=== PATIENT | male | born 1960 | race Caucasian/White ===

== ENCOUNTER 2016-11-10 08:44 | Day surgery (SDC) | payer BC ==
[~2016-11-10 08:44] MED LIST: Acetaminophen TAB* 325 MG PO PRN; Buffered Lidocaine 0.9% SYRIN* 5 ML/SYR SYRINGE INTRADERM ONE
[2016-11-10] MEDS ORDERED: Midazolam* 1 MG/ML 5 ML VIAL (5 MG) ONE (09:03)
[2016-11-10] MEDS ORDERED: fentaNYL* 50 MCG/ML 2 ML VIAL (100 MCG VIAL) ONE (09:03)
[2016-11-10 09:56] VITALS: BP 95/71
--- NOTE | 2016-11-10 13:21 | OP ---
DATE OF OPERATION: 11/10/16 [facility] DATE OF : 64 SURGEON: Dr. Davy Hurd. VOCATIONAL NURSING INSTRUCTOR: None. ANESTHESIOLOGIST: Praveen Bahena MD ANESTHESIA: Topical with intravenous sedation. PRE-OP DIAGNOSIS: Cataract, right eye. POST-OP DIAGNOSIS: Cataract, right eye. OPERATIVE PROCEDURE: Phacoemulsification and cataract extraction with posterior chamber intraocular lens implant, right eye. COMPLICATIONS: None. BLOOD LOSS: None. DESCRIPTION OF PROCEDURE: The patient was brought to the operating room and received a small amount of intravenous sedation. A drop of Tetracaine was placed in his right eye. He was prepped and draped in the usual sterile fashion for ophthalmic surgery and attention was directed to the right eye where a speculum was placed. A paracentesis was created at the 11 o'clock position and 0.1 cc of 1 percent preservative-free Lidocaine was injected into the anterior chamber followed by DisCoVisc. The eye was digitally stabilized while a 2.75 mm keratome was used to create a triplanar clear corneal incision at the 9 o'clock position. A continuous curvilinear capsulorrhexis was created with a cystotome and Utrata forceps. BSS on a cannula was used to hydrodissect the lens from the capsule. Phacoemulsification was performed in a divide-and- conquer technique to create four fragments which were removed. Residual cortical material was removed with irrigation and aspiration. DisCoVisc was used to inflate the capsular bag and an AUOOTO 19.5 diopter lens was folded and inserted into the capsular bag. DisCoVisc was removed using irrigation and aspiration. BSS on a cannula was used to hydrate the corneal stroma and seal the wound. At the end of the case the pupil was round and the lens was centered. The eye was of normal pressure and the wound was water tight. The speculum was removed and topical Maxitrol ointment was placed on the surface of the eye. The eye was closed, patched and shielded and the patient was sent to the recovery room in stable condition with post operative instructions and follow-up appointment given. [id number] #: [id number] MTDD
[2016-11-10] MEDS ORDERED: Cyclopentolate 1% OPTH.SOL* 2 ML BTL ONE (13:46)
[2016-11-10] MEDS ORDERED: Neomycin/Polymy/Dex OPHTH.OIN* 3.5 GM ONE (13:47)
[2016-11-10] MEDS ORDERED: Ketorolac 0.5% OPHTH (NF) 0.5 % 5 ML BTL ONE (13:47)
[2016-11-10] MEDS ORDERED: Tropicamide 1% OPTH.SOL* BTL ONE (13:47)
[2016-11-10] MEDS ORDERED: Phenylephrine 2.5% OPTH.SOL* 2 ML BTL ONE (13:47)
[2016-11-10] MEDS ORDERED: Lidocaine 1% MPF* 2 ML VIAL ONE (13:47)
[2016-11-10] MEDS ORDERED: Tetracaine 0.5% OPTH.SOL 4 ML* 1 DROP BTL ONE (13:47)
[2016-11-10] MEDS ORDERED: Buffered Lidocaine 0.9% SYRIN* 5 ML/SYR SYRINGE ONE (13:47)
== END 2016-11-10 10:20 | disposition home or self-care (01) ==
LOC: OREAST 08:44
PROVIDERS: ATTEND Ophthalmology
DX: H25.11 Age-related nuclear cataract, right eye (principal); H25.041 Posterior subcapsular polar age-related cataract, right eye; M06.9 Rheumatoid arthritis, unspecified; M79.7 Fibromyalgia; M19.90 Unspecified osteoarthritis, unspecified site; N52.9 Male erectile dysfunction, unspecified; J30.9 Allergic rhinitis, unspecified; F32.9 Major depressive disorder, single episode, unspecified; Z87.891 Personal history of nicotine dependence
CPT/HCPCS: A9270-GY; J2250; J3010; V2632

== ENCOUNTER 2017-03-02 12:16 | Day surgery (SDC) | payer BC ==
[2017-03-02] MEDS ORDERED: fentaNYL* 50 MCG/ML 2 ML VIAL (100 MCG VIAL) ONE (13:34)
[2017-03-02] MEDS ORDERED: Midazolam* 1 MG/ML 2 ML VIAL (2 MG) ONE ×2 (13:34→13:49)
[2017-03-02 14:30] VITALS: BP 109/71
--- NOTE | 2017-03-02 14:38 | OP ---
DATE OF OPERATION/DATE OF DICTATION: 03/02/2017 - [facility] DATE OF : 1960. SURGEON: Dr. Davy Hurd. HOME INSURANCE AGENT: None. ANESTHESIA: Topical with intravenous sedation. PRE-OP DIAGNOSIS: Cataract, left eye. POST-OP DIAGNOSIS: Cataract, left eye. OPERATIVE PROCEDURE: Phacoemulsification and cataract extraction with posterior chamber intraocular lens implant, left eye. COMPLICATIONS: None. BLOOD LOSS: None. DESCRIPTION OF PROCEDURE: The patient was brought to the operating room and received a small amount of intravenous sedation. A drop of Tetracaine was placed in his left eye. He was prepped and draped in the usual sterile fashion for ophthalmic surgery and attention was directed to the left eye where a speculum was placed. A paracentesis was created at the 5 o'clock position and 0.1 cc of 1 percent preservative-free Lidocaine was injected into the anterior chamber followed by DisCoVisc. The eye was digitally stabilized while a 2.75 mm keratome was used to create a triplanar clear corneal incision at the 3 o'clock position. A continuous curvilinear capsulorrhexis was created with a cystotome and Utrata forceps. BSS on a cannula was used to hydrodissect the lens from the capsule. Phacoemulsification was performed in a [id number] technique to create four fragments which were removed. Residual cortical material was removed with irrigation and aspiration. DisCoVisc was used to inflate the capsular bag and an AUOOTO 19.5 diopter lens was folded and inserted into the capsular bag. DisCoVisc was removed using irrigation and aspiration. BSS on a cannula was used to hydrate the corneal stroma and seal the wound. At the end of the case the pupil was round and the lens was centered. The eye was of normal pressure and the wound was water tight. The speculum was removed and topical Maxitrol ointment was placed on the surface of the eye. The eye was closed, patched and shielded and the patient was sent to the recovery room in stable condition with post operative instructions and follow-up appointment given. [id number]/CPS #: [id number] MTDD
[2017-03-02] MEDS ORDERED: Ketorolac 0.5% OPHTH (NF) 0.5 % 5 ML BTL ONE (15:28)
[2017-03-02] MEDS ORDERED: Neomycin/Polymy/Dex OPHTH.OIN* 3.5 GM ONE (15:28)
[2017-03-02] MEDS ORDERED: Phenylephrine 2.5% OPTH.SOL* 2 ML BTL ONE (15:28)
[2017-03-02] MEDS ORDERED: Cyclopentolate 1% OPTH.SOL* 2 ML BTL ONE (15:28)
[2017-03-02] MEDS ORDERED: Lidocaine 1% MPF* 2 ML VIAL ONE (15:28)
[2017-03-02] MEDS ORDERED: Tropicamide 1% OPTH.SOL* BTL ONE (15:28)
[2017-03-02] MEDS ORDERED: Tetracaine 0.5% OPTH.SOL 4 ML* 1 DROP BTL ONE (15:28)
== END 2017-03-02 14:24 | disposition home or self-care (01) ==
LOC: OREAST 12:16
PROVIDERS: ATTEND Ophthalmology
DX: H25.12 Age-related nuclear cataract, left eye (principal); M19.90 Unspecified osteoarthritis, unspecified site; M06.9 Rheumatoid arthritis, unspecified; M79.7 Fibromyalgia; Z79.899 Other long term (current) drug therapy
CPT/HCPCS: A9270-GY; J2250; J3010; V2632

== ENCOUNTER 2017-03-09 19:34 | Emergency (ER) | payer BC ==
[2017-03-09 20:37] LABS: Hematocrit 37 % (42-52); Hemoglobin 12.1 g/dl (14.0-18.0); Mean Corpuscular HGB Conc 32 g/dl (31-36); Mean Corpuscular Hemoglobin 26 pg (27-31); Mean Corpuscular Volume 81 fL (80-94); Mean Platelet Volume 8 um3 (7.4-10.4); Red Cell Distribution Width 15 % (10.5-15); White Blood Count 11.3 10^3/ul (3.5-10.8)
[2017-03-09 20:39] LABS: Albumin 3.4 g/dL (3.2-5.2); BUN/Creatinine Ratio 13.8 (8-20); Calcium 9.3 mg/dL (8.6-10.3); EGFR African American 129.6 (>60); EGFR Non-African American 100.7 (>60); Globulin 4.2 g/dL (2-4); Potassium 4.2 mmol/L (3.5-5.0); Total Bilirubin 0.3 mg/dL (0.2-1.0); Total Protein 7.6 g/dL (6.4-8.9)
[2017-03-09] MEDS ORDERED: Ketorolac INJ* 60 MG/2 ML VIAL IM ONE (20:49)
--- NOTE | 2017-03-09 20:55 | RAD ---
INDICATION: Right leg swelling. COMPARISON: There are no prior studies available for comparison. TECHNIQUE: Multiple real-time, color flow and Doppler tracings of the right lower extremity were obtained. FINDINGS: The common femoral, femoral, profunda femoral and popliteal veins all demonstrate normal compressibility, augmentation with compression and phasic response with respiration. The posterior tibial and peroneal veins demonstrate normal compressibility and augmentation with compression. IMPRESSION: NO EVIDENCE FOR DEEP VENOUS THROMBOSIS.
[2017-03-09] MEDS ORDERED: predniSONE TAB* 20 MG PO ONE (21:21)
--- NOTE | 2017-03-09 21:21 | ED ---
Lower Extremity - HPI Summary HPI Summary: 56M presents with right leg swelling for 3 days. He states that swelling is greatest in right knee. He denies any history of blood clots. He did travel for 3 hours a couple days ago. He had cataract surgery a week ago. He has history of fibromyalgia and RA and ankylosing spondylitis. He states that he has been off his meds for the surgery. He states pain is 8/10. It is sharp it starts in right hip and radiates down entire leg. no fever. no rash. is not a current smoker. no injury. has aunt with blood clots. no chest pain or SOB. - History of Current Complaint Chief Complaint: EDExtremityLower Stated Complaint: RT LOWER EXTREMITY SWELLING Time Seen by Provider: 03/09/17 19:50 Pain Intensity: 10 - Allergies/Home Medications Allergies/Adverse Reactions: Allergies Allergy/AdvReac Type Severity Reaction Status Date / Time kiwi Allergy Severe slight Uncoded 03/02/17 13:09 anaphylactic myleogram dye Allergy Severe "severe Uncoded 03/02/17 13:09 headache" PMH/Surg Hx/FS Hx/Imm Hx Endocrine/Hematology History: Denies: Hx Anticoagulant Therapy GI History: Denies: Hx Gastroesophageal Reflux Disease History: Reports: Other Problems/Disorders - PROSTITIS- 1 MONTH AGO TREATED WITH ANTIBIOTICS Musculoskeletal History: Reports: Hx Arthritis - RHEUMATOID, Hx Rheumatoid Arthritis, Hx Tendonitis - HX OF IN ELBOWS, Other Musculoskeletal History - FIBROMYALGIA Sensory History: Reports: Hx Cataracts - BILATERAL, Hx Contacts or Glasses - GLASSES Denies: Hx Hearing Aid Opthamlomology History: Reports: Hx Cataracts - BILATERAL, Hx Contacts or Glasses - GLASSES Neurological History: Reports: Hx Headaches, Hx Migraine - STATES ATYPICAL- EVERY OTHER YEAR - Surgical History Surgery Procedure, Year, and Place: APPENDECTOMY-10 YEARS AGO. TONSILLECTOMY- 14 YEARS AGO. BONE GRAFT AND PINNING LEFT GREAT TOE-7 YEARS AGO. RECONSTRUCTIVE LEFT SIDE OF FACE- 40 YEARS AGO. right cataract surgery with IOL 2017 Hx Anesthesia Reactions: No Infectious Disease History: No Infectious Disease History: Denies: Traveled Outside the [place] in Last 30 Days - Family History Known Family History: Negative: Blood Disorder - Social History Alcohol Use: Occasionally Substance Use Type: Reports: Marijuana Substance Use Comment - Amount & Last Used: daily Smoking Status (MU): Former Smoker Amount Used/How Often: 1 PPD X 40 YEARS Review of Systems Negative: Fever Negative: Chest Pain Negative: Shortness Of Breath Positive: Edema - right leg All Other Systems Reviewed And Are Negative: Yes Physical Exam Triage Information Reviewed: Yes Vital Signs On Initial Exam: Initial Vitals Temp Pulse Resp BP Pulse Ox 98.6 F 95 18 134/79 99 03/09/17 19:38 03/09/17 19:38 03/09/17 19:38 03/09/17 19:38 03/09/17 19:38 Vital Signs Reviewed: Yes Appearance: Positive: Well-Appearing Skin: Positive: Warm, Dry Head/Face: Positive: Normal Head/Face Inspection Eyes: Positive: Normal, Conjunctiva Clear Respiratory/Lung Sounds: Positive: Clear to Auscultation, Breath Sounds Present Cardiovascular: Positive: Normal, RRR Musculoskeletal: Positive: Strength/ROM Intact - right leg, Kelsie Sign Right, Edema Right - knee and ankle right, Other - good pulses, capillary refill<2secs , neg ballotment Neurological: Positive: Normal Psychiatric: Positive: Normal - [place] Coma Scale Coma Scale Total: 15 Diagnostics - Vital Signs Vital Signs Temp Pulse Resp BP Pulse Ox 03/09/17 19:38 98.6 F 95 18 134/79 99 - Laboratory Lab Results: Lab Results 03/09/17 03/09/17 03/09/17 Range/Units 20:17 20:17 20:17 WBC 11.3 H (3.5-10.8) 10^3/ul RBC 4.60 (4.0-5.4) 10^6/ul Hgb 12.1 L (14.0-18.0) g/dl Hct 37 L (42-52) % MCV 81 (80-94) fL MCH 26 L (27-31) pg MCHC 32 (31-36) g/dl RDW 15 (10.5-15) % Plt Count 472 H (150-450) 10^3/ul MPV 8 (7.4-10.4) um3 Neut % (Auto) 65.3 (38-83) % Lymph % (Auto) 22.3 L (25-47) % [place] % (Auto) 9.7 H (1-9) % Eos % (Auto) 1.7 (0-6) % Baso % (Auto) 1.0 (0-2) % Absolute Neuts (auto) 7.4 (1.5-7.7) 10^3/ul Absolute Lymphs (auto) 2.5 (1.0-4.8) 10^3/ul Absolute Monos (auto) 1.1 H (0-0.8) 10^3/ul Absolute Eos (auto) 0.2 (0-0.6) 10^3/ul Absolute Basos (auto) 0.1 (0-0.2) 10^3/ul Absolute Nucleated RBC 0.01 10^3/ul Nucleated RBC % 0.1 INR (Anticoag Therapy) 1.12 H (0.77-1.02) APTT 35.6 (26.0-36.3) seconds Sodium 138 (133-145) mmol/L Potassium 4.2 (3.5-5.0) mmol/L Chloride 101 (101-111) mmol/L Carbon Dioxide 31 (22-32) mmol/L Anion Gap 6 (2-11) mmol/L BUN 11 (6-24) mg/dL Creatinine 0.80 (0.67-1.17) mg/dL Est GFR ( Amer) 129.6 (>60) Est GFR (Non-Af Amer) 100.7 (>60) BUN/Creatinine Ratio 13.8 (8-20) Glucose 83 (70-100) mg/dL Calcium 9.3 (8.6-10.3) mg/dL Total Bilirubin 0.30 (0.2-1.0) mg/dL AST 15 (13-39) U/L ALT 14 (7-52) U/L Alkaline Phosphatase 53 (34-104) U/L Total Protein 7.6 (6.4-8.9) g/dL Albumin 3.4 (3.2-5.2) g/dL Globulin 4.2 H (2-4) g/dL Albumin/Globulin Ratio 0.8 L (1-3) Result Diagrams: 03/09/17 20:17 03/09/17 20:17 Lab Statement: Any lab studies that have been ordered have been reviewed, and results considered in the medical decision making process. - Ultrasound No standard instances Ultrasound Interpretation: No Acute Changes Ultrasound Interpretation Completed By: Radiologist Lower Extremity Course/Dx - Course Course Of Treatment: 56M presents with right leg swelling for 3 days. He states that swelling is greatest in right knee. He denies any history of blood clots. He did travel for 3 hours a couple days ago. He had cataract surgery a week ago. He has history of fibromyalgia and RA and ankylosing spondylitis. He states that he has been off his meds for the surgery. He states pain is 8/ 10. It is sharp it starts in right hip and radiates down entire leg. no fever. no rash. is not a current smoker. no injury. on exam has edema over right knee and ankle. neg ballotment. u/s normal. labs normal electrolytes. discussed that do not have reason why leg is swollen but is not blood clot. will treat with steriod to reduce inflammation. patient understand and agrees with plan. - Diagnoses Differential Diagnosis/HQI/PQRI: Positive: DVT, Infection, Sprain Provider Diagnoses: Edema of right lower extremity Discharge - Discharge Plan Condition: Good Disposition: HOME Prescriptions: Methylprednisolone [Medrol Dosepak 4 MG*] 4 mg PO .SEE SANDRA INSTRUCTION #1 packet Patient Education Materials: Leg Edema (ED) Referrals: Zoraida Reyes DO [Primary Care Provider] - Additional Instructions: Follow directions on package for Medrol pack Use ibuprofen or Tylenol for pain every 6 hours ice area Follow up with primary within 5 days Return to ED if develop any new or worsening symptoms
[2017-03-09] MEDS ORDERED: Acetaminophen TAB* 325 MG PO ONE (21:37)
[2017-03-09] MEDS ORDERED: Acetaminophen TAB* 325 MG ONE (21:40)
[2017-03-09 21:58] VITALS: BP 131/77
== END 2017-03-09 21:57 | disposition home or self-care (01) ==
LOC: ED 19:34
DX: R60.0 Localized edema (principal); Z87.891 Personal history of nicotine dependence
CPT/HCPCS: 36415; 80053; 85025; 85610; 85730; 99282; A9270-GY; J1885; J7512

== ENCOUNTER → 2018-10-14 11:09 | Day surgery (SDC) | payer BC ==
[~2018-10-14 11:09] MED LIST changes: -Acetaminophen TAB* 325 MG PO PRN; -Buffered Lidocaine 0.9% SYRIN* 5 ML/SYR SYRINGE INTRADERM ONE; +Buffered Lidocaine 1% SYRIN* 1 ML/SYRINGE INTRADERM ONE; +Dexamethasone IV* 4 MG/ML 1 ML (4 MG) IV SLOW PU ONE; +Dexamethasone IV* 4 MG/ML 1 ML (4 MG) ONE; +DiMENhydriNATE IV* 50 MG/ML VIAL IV PUSH PRN; +Famotidine IV* 10 MG/ML 2 ML (20 mg) IV ONE; +Famotidine IV* 10 MG/ML 2 ML (20 mg) ONE; +HYDROcodone/ACETAMIN 5-325 MG* 1 TAB ONE; +Lactated Ringers 1000 ML Bag* 1,000 ML IV SCH; +Lidocaine 2% PF * 5 ML VIAL ONE; +Methylene Blue 0.5 %* 50 MG/10 ML AMP IV ONE; +Midazolam* 1 MG/ML 2 ML VIAL (2 MG) ONE; +Naloxone* 0.4 MG/ML 1 ML VIAL IV PRN; +Ondansetron INJ* 2 MG/ML VIAL ONE; +Propofol* 10 MG/ML 20 ML BTL ONE; +ceFAZolin VIAL(*) VIAL ONE; +fentaNYL* 50 MCG/ML 2 ML VIAL (100 MCG VIAL) ONE
[2018-10-14] MEDS: fentaNYL* 50 MCG/ML 2 ML VIAL (100 MCG VIAL) IV PRN ×2 (18:20→18:36)
[2018-10-14 19:08] VITALS: BP 118/68
--- NOTE | 2018-10-14 21:39 | OP ---
DATE OF OPERATION: 10/14/18 - [facility] DATE OF : 64 SURGEON: Papito Ordonez MD RETIREMENT BENEFITS SPECIALIST: Dr. Iverson. ANESTHESIOLOGIST: Dr. Gauthier. ANESTHESIA: General. 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 POST-OP DIAGNOSIS: Infected right branchial cleft cyst. OPERATIVE PROCEDURE: Excision of right branchial cleft cyst. BRIEF HISTORY: This is a 58-year-old gentleman presenting with a right neck mass, painful. Fine needle aspiration showed in keeping with most likely infected branchial cleft cyst. Unfortunately, with oral antibiotics, the mass continued to enlarge and become increasingly painful and signs of infection were not resolving. DESCRIPTION OF PROCEDURE: The patient was taken to the operating room. General anesthetic was intubated. The right neck was then prepped and draped in the usual fashion. A curvilinear incision was made from the mastoid to about half way to the hyoid, about 2 cm below the angle of the mandible. Subplatysmal flaps were elevated at the sternocleido-mastoid. Anterior belly was then identified. Careful blunt and sharp dissections carried out at the cyst wall, tracking and finding the accessory nerve, the digastric belly, and the hypoglossal nerve, and removing it off the jugular vein in a blunt and sharp fashion. The cyst was removed. The wound was then copiously irrigated. The TLS drain was then applied. Wound was closed in two layers. Small dressing was applied. The patient was awakened, sent to Recovery in stable condition. Instrument and sponge counts were correct. Blood loss was minimal. [id number]/CPS #: [id number] [facility]
== END | disposition home or self-care (01) ==
LOC: OR 11:09
PROVIDERS: ATTEND Otolaryngology
DX: Q18.0 Sinus, fistula and cyst of branchial cleft (principal); Z87.891 Personal history of nicotine dependence; M06.9 Rheumatoid arthritis, unspecified; M45.9 Ankylosing spondylitis of unspecified sites in spine; M79.7 Fibromyalgia; G62.9 Polyneuropathy, unspecified; N28.1 Cyst of kidney, acquired
CPT/HCPCS: 88304; 88331; J0690; J1100; J2250; J2405; J2704; J3010

== ENCOUNTER 2022-08-20 06:23 | Observation (INO) ==
[~2022-08-20 06:23] MED LIST changes: +Buffered Lidocaine 1% SYRIN 1 ml INTRADERM ONE; -Buffered Lidocaine 1% SYRIN* 1 ML/SYRINGE INTRADERM ONE; -Dexamethasone IV* 4 MG/ML 1 ML (4 MG) IV SLOW PU ONE; -Dexamethasone IV* 4 MG/ML 1 ML (4 MG) ONE; -DiMENhydriNATE IV* 50 MG/ML VIAL IV PUSH PRN; -Famotidine IV* 10 MG/ML 2 ML (20 mg) IV ONE; -Famotidine IV* 10 MG/ML 2 ML (20 mg) ONE; -HYDROcodone/ACETAMIN 5-325 MG* 1 TAB ONE; -Lactated Ringers 1000 ML Bag* 1,000 ML IV SCH; +Lactated Ringers 1000 ml BAG 1,000 ML IV SCH; -Lidocaine 2% PF * 5 ML VIAL ONE; -Methylene Blue 0.5 %* 50 MG/10 ML AMP IV ONE; -Midazolam* 1 MG/ML 2 ML VIAL (2 MG) ONE; +Naloxone 0.4 mg VIAL 0.4 mg/ml 1 ml VIAL IV PRN; -Naloxone* 0.4 MG/ML 1 ML VIAL IV PRN; +Ondansetron 4 mg VIAL 2 MG/ML 2 ml VIAL IV PRN; -Ondansetron INJ* 2 MG/ML VIAL ONE; -Propofol* 10 MG/ML 20 ML BTL ONE; -ceFAZolin VIAL(*) VIAL ONE; +fentaNYL 100 mcg/2 ml 50 MCG/ML VIAL IV PRN; -fentaNYL* 50 MCG/ML 2 ML VIAL (100 MCG VIAL) ONE
[2022-08-20] MEDS ORDERED: ceFAZolin 2 GM in NS PREMIX 2 GM/100 ML BAG IVPB ONE (07:37)
[2022-08-20 08:07] LABS: Rapid COVID-19 Molecular Undetected (Undetected)
[2022-08-20] MEDS ORDERED: Dexamethasone IV 4 MG/ML VIAL 1 ml VIAL ONE (08:51)
[2022-08-20] MEDS ORDERED: Ondansetron 4 mg VIAL 2 MG/ML 2 ml VIAL ONE (08:51)
[2022-08-20] MEDS ORDERED: Propofol 10 MG/ML 20 ML BTL ONE (08:51)
[2022-08-20] MEDS ORDERED: Acetaminophen IV 1 GM/100ML 1,000 MG/100 ML BAG IV ONE (08:51)
[2022-08-20] MEDS ORDERED: fentaNYL 100 mcg/2 ml 50 MCG/ML VIAL ONE ×2 (08:51→09:24)
[2022-08-20] MEDS ORDERED: Midazolam 5 mg/5 ml VIAL 1 mg/ml 5 ml VIAL (5 mg) ONE (08:51)
[2022-08-20] MEDS ORDERED: Lidocaine 2% PF 5 ML VIAL ONE (08:51)
[2022-08-20] MEDS ORDERED: Metoprolol Tartrate 5 mg VIAL 5 ml VIAL (1 mg/ml) ONE (09:34)
[2022-08-20] MEDS ORDERED: Magnesium Hydroxide LIQ 30 ML UDC PO PRN (12:15)
[2022-08-20] MEDS ORDERED: Ondansetron 4 mg VIAL 2 MG/ML 2 ml VIAL IV PRN (12:15)
[2022-08-20] MEDS ORDERED: Ondansetron ODT 4 mg TAB 4 MG TAB PO PRN (12:15)
[2022-08-20] MEDS ORDERED: Lactulose 30 ml UDC PO PRN (12:15)
[2022-08-20] MEDS: Lactated Ringers 1000 ml BAG 1,000 ML IV SCH (13:44)
[2022-08-20] MEDS ORDERED: Albuterol HFA INHALER 8 gm MDI INH PRN (13:58)
[2022-08-20] MEDS: ceFAZolin 1 GM ADVAN 1 GM in NS 0.9% 50 ML 50 ML IVPB SCH (17:14)
[2022-08-20] MEDS: Magnesium Hydroxide LIQ 30 ML UDC PO SCH (20:29)
[2022-08-21] MEDS: ceFAZolin 1 GM ADVAN 1 GM in NS 0.9% 50 ML 50 ML IVPB SCH ×2 (00:32→09:17)
[2022-08-21] MEDS: Lactated Ringers 1000 ml BAG 1,000 ML IV SCH (00:34)
[2022-08-21 06:52] LABS: Hematocrit 36.5 % (38-53); Hemoglobin 12.3 g/dL (13.2-16.3); Mean Platelet Volume 8.5 fL (7.5-11.2); Platelet Count 289 10^3/uL (150-450)
[2022-08-21 07:07] LABS: Calcium 8.8 mg/dL (8.6-10.3); Creatinine, Serum 0.83 mg/dL (0.67-1.17); Potassium 4.1 mmol/L (3.5-5.0); eGFR CKD-EPI 100.2 (>60)
[2022-08-21] MEDS ORDERED: Vitamin THERAPEUTIC TAB PO SCH (09:00)
[2022-08-21] MEDS: Magnesium Hydroxide LIQ 30 ML UDC PO SCH (09:22)
[2022-08-21 10:28] VITALS: BP 128/67
== END 2022-08-21 14:30 | disposition home or self-care (01) ==
LOC: OR 06:23 → SSU 06:23 → EDSTATUS 11:45
PROVIDERS: ADMIT Orthopaedic Surgery Adult Reconstructive Orthopaedic Surgery; ATTEND Orthopaedic Surgery Adult Reconstructive Orthopaedic Surgery

== ENCOUNTER 2024-03-14 06:25 | Observation (INO) ==
[~2024-03-14 06:25] MED LIST changes: -Buffered Lidocaine 1% SYRIN 1 ml INTRADERM ONE; +HYDROmorphone 1 MG/1 ML SYRINGE IV PRN; -Lactated Ringers 1000 ml BAG 1,000 ML IV SCH; +ROPIVACAINE 5 MG/ML 30 ML BTL (0.5%) ONE
[2024-03-14] MEDS ORDERED: Tranexamic Acid 1 GM/100ML BAG 2,000 MG/200 ML BAG IV ONE ×2 (06:54→06:55)
[2024-03-14] MEDS ORDERED: ceFAZolin 2 GM PREMIX 2 GM/50 ML BAG ONE (06:54)
[2024-03-14] MEDS ORDERED: Lidocaine 2% PF 5 ML VIAL ONE (07:09)
[2024-03-14] MEDS ORDERED: Propofol 10 MG/ML 20 ML BTL ONE ×3 (07:09→17:53)
[2024-03-14] MEDS ORDERED: Rocuronium 50 mg VIAL 10 mg/ml 5 ml VIAL (50 mg) ONE (07:09)
[2024-03-14] MEDS ORDERED: fentaNYL 100 mcg/2 ml 50 MCG/ML VIAL ONE ×2 (07:10→08:11)
[2024-03-14] MEDS ORDERED: Midazolam 2 mg/2 ml VIAL 1 mg/ml 2 ml VIAL (2 mg) ONE ×3 (07:10→09:12)
[2024-03-14] MEDS ORDERED: Scopolamine 1 mg/72hr PATCH ONE (07:26)
[2024-03-14] MEDS: Scopolamine 1 mg/72hr PATCH TRANSDERM ONE (07:28)
[2024-03-14] MEDS: Buffered Lidocaine 1% SYRIN 1 ml INTRADERM ONE (07:30)
[2024-03-14] MEDS: Lactated Ringers 1000 ml BAG 1,000 ML IV SCH ×2 (07:30→13:35)
[2024-03-14] MEDS: Acetaminophen IV 1 GM/100ML 1,000 MG/100 ML BAG IV ONE (07:30)
[2024-03-14 07:31] LABS: Rapid COVID-19 Molecular Undetected (Undetected)
[2024-03-14] MEDS ORDERED: Sodium Chloride 0.9% 10 ML ONE (09:51)
[2024-03-14] MEDS ORDERED: Dexamethasone IV 4 MG/ML VIAL 1 ml VIAL ONE (09:53)
[2024-03-14] MEDS ORDERED: Ondansetron 4 mg VIAL 2 MG/ML 2 ml VIAL ONE (09:53)
[2024-03-14] MEDS ORDERED: Ondansetron 4 mg VIAL 2 MG/ML 2 ml VIAL IV PRN (10:18)
[2024-03-14] MEDS ORDERED: Magnesium Hydroxide LIQ 30 ML UDC PO PRN (10:18)
[2024-03-14] MEDS ORDERED: Lactulose 30 ml UDC PO PRN (10:18)
[2024-03-14] MEDS ORDERED: Calcium Carb (TUMS) 500 mg CHEW TAB PO PRN (10:18)
[2024-03-14] MEDS ORDERED: Ondansetron ODT 4 mg TAB 4 MG TAB PO PRN (10:18)
[2024-03-14] MEDS: Morphine 2 MG/ML SYRINGE IV PRN (13:46)
[2024-03-14] MEDS: ceFAZolin 2 GM PREMIX 2 GM/50 ML BAG IV SCH (18:26)
[2024-03-14] MEDS: Magnesium Hydroxide LIQ 30 ML UDC PO SCH (20:17)
[2024-03-15 06:00] LABS: Hematocrit 30.6 % (38-53); Hemoglobin 10.5 g/dL (13.2-16.3); Mean Platelet Volume 7.6 fL (7.5-11.2); Platelet Count 361 10^3/uL (150-450)
[2024-03-15 06:48] LABS: Calcium 8.9 mg/dL (8.6-10.3); Creatinine, Serum 0.8 mg/dL (0.67-1.17); Potassium 4.3 mmol/L (3.5-5.0); eGFR CKD-EPI 100.7 (>60)
[2024-03-15] MEDS: Vitamin THERAPEUTIC TAB PO SCH (08:48)
[2024-03-15 10:12] VITALS: BP 107/62
== END 2024-03-15 13:35 | disposition home or self-care (01) ==
LOC: SSU 06:25 → OR 06:25
PROVIDERS: ADMIT Orthopaedic Surgery Adult Reconstructive Orthopaedic Surgery; ATTEND Orthopaedic Surgery Adult Reconstructive Orthopaedic Surgery